=== PATIENT | female | born 1985 | race Caucasian/White ===

== ENCOUNTER 2020-02-11 09:17 | Inpatient (IN) | payer OTHER ==
[2020-02-11] VITALS (8 sets, daily range): BP systolic 102–124; BP diastolic 64–88
[~2020-02-11] VITALS: Ht 177.8 cm; Wt 100.8 kg
[2020-02-11 10:14] LABS: URINE AMPHETAMINES < 1000 (1000ng/ml); URINE BARBITURATES < 200 (200ng/ml); URINE BENZODIAZEPINES < 200 (200ng/ml); URINE CANNABINOIDS (THC) < 50 (50ng/ml); URINE COCAINE < 300 (300ng/ml); URINE METHADONE < 300 (300ng/ml); URINE OPIATES < 300 (300ng/ml); URINE PHENCYCLIDINE < 25 (25ng/ml)
[2020-02-11 10:21] LABS: BASO # 0.1 10*3/uL (0.0-0.1); BASO % 0.6 % (0.0-1.0); EOS % 0.3 % (1.0-4.0); HEMATOCRIT 42.1 % (37.0-47.0); LYMPH # 2.2 10*3/uL (1.3-4.4); LYMPH % 24.7 % (27.0-41.0); MEAN CELL VOLUME 90.9 fl (81.0-99.0); MEAN CORPUSCULAR HGB 30.9 pg (27.0-31.0); MEAN PLATELET VOLUME 10.7 fl (9.6-12.3); MONO # 0.6 10*3/uL (0.1-1.0); MONO % 6.2 % (3.0-9.0); NEUT # 6.1 10*3/uL (2.3-7.9); NEUT % 67.8 % (47.0-73.0); PLATELET COUNT AUTOMATED 155 10*3/uL (130-400); RED BLOOD COUNT 4.63 10*6/uL (4.10-5.10); RED CELL DISTRI WIDTH 13.6 % (0-14.5); WHITE BLOOD COUNT 9.1 10*3/uL (4.8-10.8)
[2020-02-11 10:39] LABS: ACETAMINOPHEN (TYLENOL) < 5.0 ug/ml (10-30); ALKALINE PHOSPHATASE 64 U/L (45-117); BUN 7 mg/dl (7-24); CHLORIDE 99 mmol/L (98-107); CREATININE 0.76 mg/dL (0.55-1.02); LIPASE 382 U/L (73-393); POTASSIUM 2.9 mmol/L (3.5-5.1); SGOT/AST 326 IU/L (3-35); SGPT/ALT 148 U/L (12-78); SODIUM 133 mmol/L (136-145); TOTAL PROTEIN 7.7 gm/dL (6.4-8.2); TROPONIN I < 0.015 ng/ml (<0.045)
[2020-02-11 10:42] LABS: BILIRUBIN NEGATIVE (NEGATIVE); BLOOD 2+ (NEGATIVE); CLARITY CLEAR (CLEAR); COLOR YELLOW (YELLOW); GLUCOSE NEGATIVE (NEGATIVE); KETONE NEGATIVE (NEGATIVE); SPECIFIC GRAVITY 1.005 (1.005-1.030)
[2020-02-11 10:43] LABS: EPITHELIAL CELLS 0-2; LEUKO ESTERASE NEGATIVE (NEGATIVE); NITRITE NEGATIVE (NEGATIVE); UROBILINOGEN 0.2 E.U./dl (0.2-1.0)
--- NOTE | 2020-02-11 11:39 | NUR ---
PATIENT DENIES WOUNDS A&OX4.
--- NOTE | 2020-02-11 11:57 | NUR ---
US CALLED AND STATES WILL BE HER TO TRANSPORT PT FOR TESTING IN APPROX 1 HR. PT NPO TILL THEN AND AWARE.
--- NOTE | 2020-02-11 12:08 | NUR ---
SITTING SEMI FOWLERS IN BED WATCHING TV. NO COMPLSINTS.
--- NOTE | 2020-02-11 12:15 | NUR ---
[place] STAFF IN TO SEE PATIEN. PATIENT IS WANTING NEW VISION SERVICES AND WILL FOLLOW UP WITH [facility] FOR RESIDENTIAL TREATMENT. CROW TURPIN B.A. TOOLMAKER
--- NOTE | 2020-02-11 12:28 | NUR ---
PT NOW TO US VIA WHEELCHAIR.
--- NOTE | 2020-02-11 13:01 | NUR ---
PT ATE 95% OF LUNCH TRAY, TOLERATED WELL. CALL LIGHT IN REACH AND REINFORCED.
--- NOTE | 2020-02-11 13:25 | NUR ---
A 34, admitted to [facility], under the services of NONA Page DO with a diagnosis of ALCOHOL ABUSE. Chief complaint is ALCOHOL ABUSE. Patient arrived via bed from ER. Monitor applied. Initial assessment completed. Vital signs taken and recorded. NONA PAGE DO notified of admission to the unit. Orders received. See assessment for past medical history, medications and allergies. Patient and/or family oriented to unit. [facility]. Clothing/patient valuable form completed. CROW KAY
[2020-02-11] MEDS ORDERED: VRAYLAR3 MG PO (13:26)
[2020-02-11] MEDS ORDERED: ATARAX,VISTARIL50 MG PO (13:27)
--- NOTE | 2020-02-11 14:11 | NUR ---
DR BARILLAS NOTIFIED PT ON THE FLOOR AND HOME MEDS ARE IN .
--- NOTE | 2020-02-11 15:40 | NUR ---
YASMANI ALEXANDER NOTIFIED OF CRITICAL LACTIC OF 2.3. STATES SHE IS COMING TO THE FLOOR
--- NOTE | 2020-02-11 20:18 | NUR ---
PATIENT SLEEPING, WOKEN UP FOR SCHEDULED MEDICATIONS. VOICES NO COMPLAINTS. DENIES TEMORS. RESPIRATIONS EASY, NON LABORED. NO SIGNS OF DISTRESS. BED IN LOWEST POSITION, CALL LIGHT WITHIN REACH. WILL CONTINUE TO MONITOR.
[2020-02-12] VITALS: BP 108/72
--- NOTE | 2020-02-12 04:00 | NUR ---
PATIENT SLEEPING, NO SIGNS OF DISTRESS. RESPIRATIONS EASY, NON LABORED WILL CONTINUE TO MONITOR.
[2020-02-12 06:51] LABS: BASO # 0.1 10*3/uL (0.0-0.1); BASO % 0.8 % (0.0-1.0); EOS # 0.1 10*3/uL (0.0-0.4); EOS % 1.8 % (1.0-4.0); HEMATOCRIT 38.3 % (37.0-47.0); LYMPH # 1.6 10*3/uL (1.3-4.4); LYMPH % 25.4 % (27.0-41.0); MEAN CELL VOLUME 93.2 fl (81.0-99.0); MEAN CORPUSCULAR HGB 31.1 pg (27.0-31.0); MEAN CORPUSCULAR HGB CONC 33.4 g/dl (33.0-37.0); MEAN PLATELET VOLUME 11.6 fl (9.6-12.3); MONO # 0.4 10*3/uL (0.1-1.0); MONO % 6.9 % (3.0-9.0); NEUT % 64.8 % (47.0-73.0); PLATELET COUNT AUTOMATED 116 10*3/uL (130-400); RED BLOOD COUNT 4.11 10*6/uL (4.10-5.10); RED CELL DISTRI WIDTH 13.6 % (0-14.5); WHITE BLOOD COUNT 6.1 10*3/uL (4.8-10.8)
[2020-02-12 07:27] LABS: CHLORIDE 102 mmol/L (98-107); POTASSIUM 3.5 mmol/L (3.5-5.1); SODIUM 136 mmol/L (136-145)
[2020-02-12 07:35] LABS: ALBUMIN 3.4 gm/dl (3.1-4.5); ALKALINE PHOSPHATASE 67 U/L (45-117); BUN 8 mg/dl (7-24); CREATININE 0.74 mg/dL (0.55-1.02); SGOT/AST 179 IU/L (3-35); SGPT/ALT 122 U/L (12-78); TOTAL PROTEIN 6.3 gm/dL (6.4-8.2)
[2020-02-12 08:00] VITALS: BP 117/78; BP 130/80
[2020-02-12 12:00] VITALS: BP 103/66
--- NOTE | 2020-02-12 13:07 | NUR ---
PATIENT HAS BEEN ACCEPTED TO [facility] FOR January. [facility] WILL PROVIDE TRANSPORTATION. CROW TURPIN B.A. [address]IGHW[address] LANDSCAPE ARCHITECT
[2020-02-12 16:00] VITALS: BP 102/66
[2020-02-12 20:00] VITALS: BP 121/69
--- NOTE | 2020-02-12 20:42 | NUR ---
PATIENT MEDICATED WITH MOTRIN AND ROBAXIN FOR C/O MUSCLE ACHES AND DISCOMFORT TO BLE. WILL CONTINUE TO MONITOR
--- NOTE | 2020-02-12 21:42 | NUR ---
MOTRIN AND ROBAXIN EFFECTIVE
[2020-02-13] VITALS: BP 107/77
--- NOTE | 2020-02-13 00:43 | NUR ---
24 HR chart check completed.
--- NOTE | 2020-02-13 02:57 | NUR ---
PATIENT MEDICATED WITH ROBAXIN FOR C/O BLE ACHES. WILL MONITOR
--- NOTE | 2020-02-13 07:30 | NUR ---
TRANSFERRED PT CARE TO [facility] INSTRUCTOR FEROZ SPANGLER RN, AND HER STUDENTS.
[2020-02-13 08:00] VITALS: BP 117/86
[2020-02-13 08:08] LABS: HEP B CORE AB, IGM Negative (Negative); HEPATITIS B SURFACE AG Negative (Negative); HEPATITIS C VIRUS ANTIBODY <0.1 s/co (0.0-0.9)
[2020-02-13 12:00] VITALS: BP 118/74
--- NOTE | 2020-02-13 13:47 | NUR ---
Kaity from [facility] called requesting clinicals to be faxed to [phone]. Printed clinicals and faxed.
--- NOTE | 2020-02-13 14:00 | NUR ---
PT MEDICATED WITH REQUIP ORDERED FOR C/O RESTLESSNESS. DENIES ANY OTHER FEELINGS OF WITHDRAWAL. NO FURTHER C/O VOICED. WILL MONITOR.
--- NOTE | 2020-02-13 14:28 | NUR ---
[place] STAFF IN TO SEE PATIENT. PATIENT WILL BE GOING TO [facility]. THEY WILL BE PROVIDING TRANSPORTATION ON SUNDAY. January. PATIENT AGREES AND UNDERSTANDS HER AFTERCARE PLAN. 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
[2020-02-13 16:00] VITALS: BP 122/81
[2020-02-13 20:00] VITALS: BP 107/70
--- NOTE | 2020-02-13 21:30 | NUR ---
PATIENT VOICED NO COMPLAINTS STATES THAT REQUIP IS HELPING WITH BLE DISCOMFORT. PATIENT HAS NO DEMANDS AT THIS TIME. CALL LIGHT LEFT WITHIN REACH
[2020-02-14] VITALS: BP 116/77
[2020-02-14 07:39] LABS: ALBUMIN 3.5 gm/dl (3.1-4.5); BUN 11 mg/dl (7-24); CHLORIDE 104 mmol/L (98-107); POTASSIUM 3.5 mmol/L (3.5-5.1); SGOT/AST 202 IU/L (3-35); SGPT/ALT 221 U/L (12-78); SODIUM 138 mmol/L (136-145); TOTAL PROTEIN 7.2 gm/dL (6.4-8.2)
[2020-02-14 07:42] LABS: ALKALINE PHOSPHATASE 84 U/L (45-117); CREATININE 0.71 mg/dL (0.55-1.02)
[2020-02-14 08:00] VITALS: BP 108/74
[2020-02-14 12:00] VITALS: BP 104/64
[2020-02-14 16:00] VITALS: BP 107/66
[2020-02-14 20:00] VITALS: BP 104/68
--- NOTE | 2020-02-14 21:50 | NUR ---
PATIENT MEDICATED WITH ROBAXIN FOR C/O MUSCLE ACHES. WILL MONITOR
--- NOTE | 2020-02-14 22:50 | NUR ---
ROBAXIN EFFECTIVE FOR MUSCLE ACHES
[2020-02-15 08:00] VITALS: BP 106/66
[2020-02-15 12:00] VITALS: BP 114/72
[2020-02-15 16:00] VITALS: BP 119/69
[2020-02-15 20:00] VITALS: BP 113/70
--- NOTE | 2020-02-15 21:00 | NUR ---
PATIENT VOICED NO COMPLAINTS. NO DISTRESS NOTED, RESP ARE EASY AND REGULAR. PATIENT STATES SHE JUST WANTS PEACEFUL SLEEP TONIGHT. CALL LIGHT WITHIN REACH
[2020-02-16] VITALS: BP 100/55
[2020-02-16 06:18] LABS: BASO % 0.6 % (0.0-1.0); EOS # 0.2 10*3/uL (0.0-0.4); EOS % 3.3 % (1.0-4.0); HEMATOCRIT 39.3 % (37.0-47.0); LYMPH # 2.1 10*3/uL (1.3-4.4); MEAN CELL VOLUME 96.3 fl (81.0-99.0); MEAN CORPUSCULAR HGB 31.4 pg (27.0-31.0); MEAN CORPUSCULAR HGB CONC 32.6 g/dl (33.0-37.0); MEAN PLATELET VOLUME 11.8 fl (9.6-12.3); MONO # 0.7 10*3/uL (0.1-1.0); MONO % 13.7 % (3.0-9.0); NEUT # 2.2 10*3/uL (2.3-7.9); NEUT % 41.6 % (47.0-73.0); PLATELET COUNT AUTOMATED 127 10*3/uL (130-400); RED BLOOD COUNT 4.08 10*6/uL (4.10-5.10); RED CELL DISTRI WIDTH 13.8 % (0-14.5); WHITE BLOOD COUNT 5.2 10*3/uL (4.8-10.8)
[2020-02-16 08:00] VITALS: BP 100/58
--- NOTE | 2020-02-16 08:05 | NUR ---
Shift chart check completed.
--- NOTE | 2020-02-16 08:42 | NUR ---
PT SITTING UP ON PHONE. NO NEEDS STATED AT THIS TIME
[2020-02-16] MEDS ORDERED: VITAMIN B-1100 M1 PO (08:49)
[2020-02-16] MEDS ORDERED: ATARAX,VISTARIL50 MG PO (08:49)
[2020-02-16] MEDS ORDERED: METHOCARBAMOL750 M1 PO (08:49)
[2020-02-16] MEDS ORDERED: DICYCLOMINE HCL20 MG PO (08:49)
[2020-02-16] MEDS ORDERED: MOTRIN 600 MG E4 TAB PO (08:49)
[2020-02-16] MEDS ORDERED: NATURE'S BLEND F1 MG PO (08:49)
[2020-02-16] MEDS ORDERED: THERA TABLET400 MCG PO (08:49)
--- NOTE | 2020-02-16 10:05 | NUR ---
Discharge instructions reviewed with patient. Patient receptive and verbalizes understanding. Follow-up care arranged/ sent to [facility] inpatient rehab Written instructions given to patient. rx given to patient, pt understands instructions, no questions at this time. iv removed right arm. pt walked to lobby to wait for [facility] to pick patient up. ANAND GARCIA
== END 2020-02-16 10:10 | disposition home or self-care (01) | DRG 775 ==
LOC: ED 09:17 → 5E 10:52 → EDHOLD 10:52 → 5E 13:31
PROVIDERS: Nurse Practitioner Family; Registered Nurse; ADMIT Student in an Organized Health Care Education/Training Program
DX: F10.230 Alcohol dependence with withdrawal, uncomplicated (principal); E87.1 Hypo-osmolality and hyponatremia; F31.9 Bipolar disorder, unspecified; R74.0 Nonspecific elevation of levels of transaminase and lactic acid dehydrogenase [LDH]; R00.0 Tachycardia, unspecified; E87.2 Acidosis; E87.6 Hypokalemia; E66.9 Obesity, unspecified; K76.0 Fatty (change of) liver, not elsewhere classified; Z88.1 Allergy status to other antibiotic agents; Z88.2 Allergy status to sulfonamides; Z88.8 Allergy status to other drugs, medicaments and biological substances; Z68.31 Body mass index [BMI] 31.0-31.9, adult